=== PATIENT | male | born 1980 | race Caucasian/White ===

== ENCOUNTER 2017-05-20 15:45 | Emergency (ER) | payer SELFPAY ==
[2017-05-20 15:50] VITALS: BP 168/105
--- NOTE | 2017-05-20 16:21 | ED ---
Throat Pain/Nasal Congestion - HPI Summary HPI Summary: 36M presents with foreign body in right eye today. He states the he got something in his eye and that he had watery discharge and can barely keep his eye open. He states his eye feels swollen. He denies any blurry vision or diplopia. He does not wear contacts or glasses. - History of Current Complaint Chief Complaint: EDEyeProblem Time Seen by Provider: 05/20/17 16:03 - Allergies/Home Medications Allergies/Adverse Reactions: Allergies Allergy/AdvReac Type Severity Reaction Status Date / Time No Known Allergies Allergy Verified 03/15/15 15:27 PMH/Surg Hx/FS Hx/Imm Hx Endocrine/Hematology History: Denies: Hx Anticoagulant Therapy Cardiovascular History: Denies: Hx Hypertension - Surgical History Surgery Procedure, Year, and Place: DENTAL EXTRACTION Infectious Disease History: No Infectious Disease History: Denies: Traveled Outside the [place] in Last 30 Days - Family History Known Family History: Negative: Cardiac Disease - Social History Alcohol Use: Occasionally Substance Use Type: Reports: None Smoking Status (MU): Never Smoked Tobacco Review of Systems Negative: Fever Positive: Drainage, Erythema Negative: Chest Pain Negative: Shortness Of Breath All Other Systems Reviewed And Are Negative: Yes Physical Exam Triage Information Reviewed: Yes Vital Signs On Initial Exam: Initial Vitals Temp Pulse Resp BP Pulse Ox 97.5 F 66 20 168/105 99 05/20/17 15:47 05/20/17 15:47 05/20/17 15:47 05/20/17 15:47 05/20/17 15:47 Vital Signs Reviewed: Yes Appearance: Positive: Well-Appearing Skin: Positive: Warm, Dry Head/Face: Positive: Normal Head/Face Inspection Eyes: Positive: EOMI, DIEGO, Conjunctiva Inflammed, Other: - no foreign body seen ENT: Positive: Normal ENT inspection, Pharynx normal, TMs normal Respiratory/Lung Sounds: Positive: Clear to Auscultation, Breath Sounds Present Cardiovascular: Positive: Normal, RRR Procedures - Eye Procedure Alcaine Drops Administered: Yes - no foreign body on fluorscein exam Eye Irrigated w/ Saline (ccs): 50 Diagnostics - Vital Signs Vital Signs Temp Pulse Resp BP Pulse Ox 05/20/17 15:50 97.5 F 68 20 168/105 99 05/20/17 15:47 97.5 F 66 20 168/105 99 - Laboratory Lab Statement: Any lab studies that have been ordered have been reviewed, and results considered in the medical decision making process. EENT Course/Dx - Course Course Of Treatment: 36M presents with foreign body in right eye today. He states the he got something in his eye and that he had watery discharge and can barely keep his eye open. He states his eye feels swollen. on exam no foreign body seen or corneal abrasion on fluorescein exam. irrigated eye and gave antibiotic drops. patient understands and agrees with plan - Differential Diagnoses Differential Diagnoses: Conjunctivitis, Corneal Abrasion, Foreign Body - Diagnoses Provider Diagnoses: Foreign body of right eye Discharge - Discharge Plan Condition: Good Disposition: HOME Patient Education Materials: Eye Foreign Body (ED) Referrals: [facility] [Outside] Additional Instructions: Place 1 drop in eye 4 times a day for 5 days Use artificial tears or saline to rinse eye for symptomatic relief Take Tylenol or ibuprofen for pain Return to ED if develop any new or worsening symptoms
[2017-05-20] MEDS ORDERED: Polymyx/Trimethoprim OPTH* 10 ML BTL RIGHT EYE ONE (16:30)
== END 2017-05-20 16:33 | disposition home or self-care (01) ==
LOC: ED 15:45
DX: T15.91XA Foreign body on external eye, part unspecified, right eye, initial encounter (principal); X58.XXXA Exposure to other specified factors, initial encounter; Y93.9 Activity, unspecified; Y92.9 Unspecified place or not applicable
CPT/HCPCS: 99281

== ENCOUNTER 2019-03-31 08:12 | Emergency (ER) | payer SELFPAY ==
--- OUTSIDE RECORDS SUMMARY | 2019-03-31 08:20 | XMS REPORT | Continuity of Care Document ---
:1980 External Reference #:[id number] Author Name Екатерина Farias Care Team Providers Name Role Phone Patient's Choice Primary Care Physician Unavailable Payers Date Identification Numbers Payment Provider Subscriber Policy Number: [id number] [employer] Chris Ornelas PayID: [id number] [address] MEGHNA Espinoza [address] Onset: 2018 Policy Number: [id number] # [employer] Chris Ornelas Group Number: POLICY # [id number] 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 [employer] ETOH Use Occasionally consumes alcohol Tobacco Use Start: Unknown Patient has never smoked Smoking Status Reviewed: 03/23/19 Patient has never smoked Exercise Type/Frequency Exercises regularly Allergies, Adverse Reactions, Alerts Description No Known Drug Allergies Medications Active Medications SIG Qnty Indications Ordering Provider Date Triflex 2 tabs for pain Unknown prn Protein Powder Sintha 1 scoop 2 -3 Unknown [place] times a day History Medications Youtheory Collagen 4 tabs twice a day Unknown - 08/17/2018 Immunizations Description No Information Available Vital Signs Date Vital Result Comment 03/23/2019 1:39pm Weight 303.00 lb Heart Rate 72 /min BP Systolic 138 mmHg BP Diastolic 88 mmHg Respiratory Rate 16 /min O2 % BldC Oximetry 98 % 09/08/2018 9:45am Height 72 inches 6'0" Heart Rate 60 /min BP Systolic Sitting 110 mmHg BP Diastolic Sitting 82 mmHg Respiratory Rate 16 /min Body Temperature 96.7 F Pain Level 1 08/18/2018 10:14am Height 72 inches 6'0" Weight 289.75 lb Heart Rate 60 /min BP Systolic Sitting 122 mmHg BP Diastolic Sitting 84 mmHg Respiratory Rate 20 /min Body Temperature 96.6 F Pain Level 4 BMI (Body Mass Index) 39.3 kg/m2 07/21/2018 2:07pm Height 72 inches 6'0" Weight 283.00 lb Heart Rate 64 /min BP Systolic 140 mmHg Rue BP Diastolic 88 mmHg Rue BP Systolic Sitting 138 mmHg Lue BP Diastolic Sitting 92 mmHg Lue Respiratory Rate 16 /min Body Temperature 97.6 F Pain Level 0 O2 % BldC Oximetry 98 % BMI (Body Mass Index) 38.4 kg/m2 Results Test Date Facility Test Result H/L Range Note Laboratory test 07/21/2018 [facility] Hemoglobin A1c 5.4 % N 4.0-5.[address] (Glyco HGB) [place] [address] [phone] Hepatitis B Surface Ag Nonreactive Nonreactive Hepatitis C Antibody Nonreactive Nonreactive HIV 1/2 AB 07/21/2018 [facility] HIV 1 2 Nonreactive Nonreactive [address] [place] [address] [phone] Laboratory 07/21/2018 [facility] Hepatitis B <pending> test finding [address] [place] [address] [phone] Hepatitis C Antibody <pending> 1 Therapeutic target for the treatment of diabetes mellitus patients is <7% HBA1C, and in selective patients <6.0%. Please refer to [place] [employer] diabetic care guidelines for further information. 2 It is recognized that currently available assays for the detection of antibodies to HIV-1 and/or HIV-2 may not detect all infected individuals. HIV antibodies may be undetectable in some stages of the infection and in some clinical conditions. The performance of this assay has not been established for populations of infants or children. Assayed by Chemiluminescence Microparticle Immunoassay on the Siemens Advia Tandem Diabetes Careaur CP. Values obtained with different methods or kits cannot be used interchangeably.The diagnostic specificity of the ADVIA Centaur 1/O/2 Enhanced assay in the low risk population was 99.90% (6052/6058) with a 95% confidence interval of 99.78 to 99.96%. Procedures Description No Information Available Encounters Type Date Location Provider Dx Diagnosis Office Visit 09/08/2018 [facility] Tobin, S62.330D Disp fx of nk of 10:00a [facility] 2nd MC bone, r hand, 7thD Office Visit 08/18/2018 [facility] Char[facility] Tobin, S62.330A Disp fx of neck 10:00a [facility] of second metacarpal bone, right hand, init Office Visit 07/21/2018 [facility] Donte Bay MD Y93.75 Activity, martial 1:30p [facility] [employer] [facility] E66.9 Obesity, unspecified Office Visit 07/06/2013 2:00p [facility] Hip[facility]ito Willoughby, 845.09 Sp[facility] Strains [facility] Other Plan of Treatment No Information Available
[2019-03-31 08:21] VITALS: BP 156/101
--- NOTE | 2019-03-31 08:47 | UC ---
Ear Complaint HPI - HPI Summary HPI Summary: CHIEF COMPLAINT and HPI: This is a 38-year-old male with a history of frequent childhood ear infections, and one or 2 episodes of ear infections as an adult, complains of significant pain in the right ear over the past 12 hours. The pain is described as 4/10 and is in the ear and on the outer ear or tragus. Note is also made of a blood pressure of 156/101. The patient is not on antihypertensive medications and has no primary care. VITAL SIGNS & SaO2 REVIEWED. Within normal limits unless noted. 156/101. NURSES NOTE REVIEWED. "right ear pain started last night" - History of Current Complaint Chief Complaint: UCEar Stated Complaint: RIGHT EAR INFECTION Time Seen by Provider: 03/31/19 08:47 Pain Intensity: 4 - Allergies/Home Medications Allergies/Adverse Reactions: Allergies Allergy/AdvReac Type Severity Reaction Status Date / Time No Known Allergies Allergy Verified 03/31/19 08:21 PMH/Surg Hx/FS Hx/Imm Hx - Additional Past Medical History Additional PMH: PAST MEDICAL HISTORY- no admissions. CHRONIC and RECURRENT HEALTH PROBLEM LIST REVIEWED. Information relevant to present complaint: ortho injuries; practices martial arts. VISIT HISTORY REVIEWED: previous ear pain in 2008. MEDICATIONS & ALLERGIES REVIEWED. HYPERTENSION STATUS: no meds. FAMILY HISTORY: Patient denies family history of: hypertension, cardiovascular disease, stroke, diabetes, cancer. 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 Previously Healthy: Yes Other History Of: Negative For: Anticoagulant Therapy - Surgical History Surgical History: Yes Surgery Procedure, Year, and Place: DENTAL EXTRACTION - Family History Known Family History: Negative: Cardiac Disease - Social History Alcohol Use: Occasionally Substance Use Type: None Smoking Status (MU): Never Smoked Tobacco Review of Systems All Other Systems Reviewed And Are Negative: Yes ENT: Positive: Ear Ache - right Respiratory: Positive: Negative. Negative: Shortness Of Breath Cardiovascular: Positive: Negative. Negative: Palpitations Gastrointestinal: Positive: Negative. Negative: Abdominal Pain Is Patient Immunocompromised?: No Physical Exam - Summary Physical Exam Summary: Appearance: The patient is well-appearing, is in no pain or distress, and is well-nourished. Eyes: Conjunctiva are clear. Pupils are equal and reactive to light and accommodation. Extra ocular muscle movement is intact. ENT: The hearing is grossly normal, the pharynx is normal, and the left TM is normal. There is no muffled or hoarse voice. No stridor. No tenderness of the right tragus and no adenopathy. The neck is supple. The patient is afebrile. There is a significantly injected right tympanic membrane. Neck: The neck is supple and there is no lymphadenopathy. Respiratory: The chest is non-tender to palpation and without crepitus. The lungs are clear, there are normal breath sounds, and there is no respiratory distress. No wheezes, rales or rhonchi. Cardiovascular: Heart sounds reveal a regular rate and rhythm. There are no clicks, rubs or murmurs. There are no carotid bruits or thrills. Circulation is grossly intact. Abdomen: The abdomen is soft and nontender. There is no organomegaly. Bowel sounds are present and within normal limits. No point tenderness at McBurneys point. No CVA tenderness. Musculoskeletal: Strength is intact. The patient moves all extremities. Neurological: The patient is alert. Motor and sensory are examination grossly intact. Speech is normal. Psychological: The patient displays age appropriate behavior, and is conversant. GCS=15. Skin: Negative for rashes. Triage Information Reviewed: Yes Vital Signs: Initial Vital Signs Temp 97.7 F 03/31/19 08:17 Pulse 67 03/31/19 08:17 Resp 16 03/31/19 08:17 BP 156/101 03/31/19 08:17 Pulse Ox 100 03/31/19 08:17 Vital Signs Reviewed: Yes Ear Complaint Course/Dx - Course Course Of Treatment: MEDICAL DECISION MAKING and PLAN: This is a 38-year-old male with a history of frequent childhood ear infections, and one or 2 episodes of ear infections as an adult, complains of significant pain in the right ear over the past 12 hours. The pain is described as 4/10 and is in the ear and on the outer ear or tragus. Note is also made of a blood pressure of 156/101. The patient is not on antihypertensive medications and has no primary care. Patient will find a physician in follow-up for his blood pressure. Review of systems is positive for ear pain, but is otherwise unremarkable. Physical examination shows no tenderness of the right tragus and no adenopathy. The neck is supple. The patient is afebrile. There is a significantly injected right tympanic membrane. My differential is external otitis versus otitis media. I diagnosis is otitis media of the right ear. I will start the patient on amoxicillin, 875 mg twice a day for 10 days. The patient knows to follow up if he is not improving in 3 days or if she develops fever, increasing pain. MEDICATIONS REVIEWED. HYPERTENSION STATUS REVIEWED WITH PATIENT IF blood pressure is above 120/80. Note: 156/101. - Differential Dx/Diagnosis Differential Diagnosis/HQI/PQRI: Otitis Externa, Otitis Media Provider Diagnosis: Otitis media Discharge - Sign-Out/Discharge Documenting (check all that apply): Patient Departure All imaging exams completed and their final reports reviewed: No Studies - Discharge Plan Condition: Stable Disposition: HOME Prescriptions: Amoxicillin PO (*) [Amoxicillin 875 MG (*)] 875 mg PO BID #20 tab MDD 2 Patient Education Materials: Ear Infection (ED) Referrals: No Primary Care Phys,NOPCP [Primary Care Provider] - Additional Instructions: WE DISCUSSED: PLEASE SEEK CARE AT THE EMERGENCY DEPARTMENT IF SYMPTOMS WORSEN OR IF NEW SYMPTOMS DEVELOP. FOLLOW UP WITH YOUR PRIMARY CARE PHYSICIAN IF CONDITION CONTINUES BEYOND 3 DAYS WITHOUT IMPROVEMENT. YOUR DIAGNOSIS IS: RIGHT EAR INFECTION YOUR PRESCRIPTION RECOMMENDATION IS: AMOXICILLIN, TWICE A DAY FOR 10 DAYS OTHER INSTRUCTIONS: Hypertension Discharge Instructions: Your blood pressure reading today was 161/69, indicating HYPERTENSION. Follow- up with your primary care provider within 4 weeks for blood pressure check and appropriate recommendations and treatment, as needed. ALSO: LOTS OF WARM MOIST HEAT TO HEAD AND EAR AREA TO INCREASE CIRCULATION AND DRAINAGE. Recheck if you're not improving in 3 days. Sooner for increasing pain or fever. - Billing Disposition and Condition Condition: STABLE Disposition: Home
== END 2019-03-31 09:08 | disposition home or self-care (01) ==
LOC: UCEAST 08:12
DX: H66.91 Otitis media, unspecified, right ear (principal); R03.0 Elevated blood-pressure reading, without diagnosis of hypertension; Z82.49 Family history of ischemic heart disease and other diseases of the circulatory system; Z82.3 Family history of stroke; Z83.3 Family history of diabetes mellitus; Z80.9 Family history of malignant neoplasm, unspecified
CPT/HCPCS: 99212; G0463

== ENCOUNTER 2021-10-31 16:39 | Inpatient (IN) ==
[2021-10-31 21:50] LABS: ABS Basophils 0.1 10^3/ul (0-0.2); ABS Eosinophils 0.1 10^3/ul (0-0.6); ABS Lymphocytes 3.1 10^3/ul (1.0-4.8); ABS Monocytes 0.8 10^3/ul (0-0.8); ABS Neutrophils 7.6 10^3/ul (1.5-7.7); Hematocrit 44 % (42-52); Hemoglobin 14.6 g/dL (14.0-18.0); Lymphocyte % 26.5 %; Mean Corpuscular HGB Conc 34 g/dL (31-36); Mean Corpuscular Hemoglobin 28 pg (27-31); Mean Corpuscular Volume 83 fL (80-94); Mean Platelet Volume 9.1 fL (7.4-10.4); Platelet Count 269 10^3/uL (150-450); Red Blood Count 5.24 10^6 /uL (4.18-5.48); Red Cell Distribution Width 14 % (10-15); White Blood Count 11.8 10^3/uL (3.5-10.8)
[2021-10-31 22:03] LABS: Rapid COVID-19 Molecular Undetected (Undetected)
[2021-10-31 22:07] LABS: ALT 55 U/L (7-52); Albumin 4.3 g/dL (3.2-5.2); Albumin/Globulin Ratio 1.2 (1-3); Alkaline Phosphatase 51 U/L (35-149); Blood Urea Nitrogen 15 mg/dL (6-24); C Reactive Protein 20.89 mg/L (<8.01); CO2 Carbon Dioxide 27 mmol/L (22-32); Calcium 9.5 mg/dL (8.6-10.3); Chloride 99 mmol/L (101-111); Globulin 3.7 g/dL (2-4); Glucose 157 mg/dL (70-100); Sodium 134 mmol/L (135-145); eGFR CKD-EPI 109.9 (>60)
[2021-10-31] MEDS ORDERED: Albuterol HFA INHALER 8 gm MDI INH ONE (22:08)
[2021-10-31] MEDS ORDERED: Iohexol 350 (CONTRAST) 500 ML MDV IV ONE (22:21)
[2021-10-31 22:26] LABS: Troponin I 0.17 ng/mL (<0.03)
[2021-10-31 22:27] LABS: Anion Gap 8 mmol/L (2-11)
[2021-11-01] MEDS ORDERED: Albuterol HFA INHALER 8 gm MDI INH PRN (01:50)
[2021-11-01 03:59] LABS: Troponin I 0.25 ng/mL (<0.03)
[2021-11-01 04:32] LABS: Urine Appearance Clear; Urine Bilirubin Negative (Negative); Urine Blood Negative (Negative); Urine Color Yellow; Urine Glucose Negative (Negative); Urine Ketones Negative (Negative); Urine Nitrite Negative (Negative); Urine Protein Negative (Negative); Urine Specific Gravity 1.038 (1.002-1.030); Urine Urobilinogen Negative (Negative)
[2021-11-01 04:52] LABS: Influenza A Molecular Negative (Negative); Influenza B Molecular Negative (Negative)
[2021-11-01 07:41] LABS: Troponin I 0.26 ng/mL (<0.03)
[2021-11-01 09:27] LABS: HIV 4th Generation Nonreactive (Nonreactive)
[2021-11-01 12:43] LABS: Troponin I 0.25 ng/mL (<0.03)
[2021-11-01 13:03] LABS: AST Redraw 26 U/L (13-39); Potassium Redraw 4.8 mmol/L (3.5-5.0)
[2021-11-02 09:55] LABS: Hematocrit 40 % (42-52); Hemoglobin 13.4 g/dL (14.0-18.0); Mean Corpuscular HGB Conc 34 g/dL (31-36); Mean Corpuscular Hemoglobin 28 pg (27-31); Mean Corpuscular Volume 83 fL (80-94); Mean Platelet Volume 9.1 fL (7.4-10.4); Platelet Count 241 10^3/uL (150-450); Red Blood Count 4.81 10^6 /uL (4.18-5.48); Red Cell Distribution Width 14 % (10-15); White Blood Count 9.7 10^3/uL (3.5-10.8)
[2021-11-02 10:12] LABS: Magnesium 1.8 mg/dL (1.9-2.7); Potassium 4.1 mmol/L (3.5-5.0); eGFR CKD-EPI 105.8 (>60)
[2021-11-02] MEDS ORDERED: Magnesium Sulfate 2 gm BAG 2 GM/50 ML BAG IVPB ONE (11:29)
[2021-11-02 12:03] VITALS: BP 153/96
[2021-11-02] MEDS ORDERED: Flu vaccine *QUAD* 2021-22* 0.5 ML SYRINGE IM ONE (14:00)
== END 2021-11-02 16:05 | disposition home or self-care (01) | DRG 137 ==
LOC: ED 16:39 → EDHOLD 11-01 01:40 → MED 11-01 19:25
PROVIDERS: ADMIT Hospitalist; ATTEND Hospitalist